=== PATIENT | male | born 1955 | race African-American/Black ===

== ENCOUNTER 2019-10-17 08:36 | Outpatient (CLI) | payer MEDICARE ==
--- NOTE | 2019-10-17 09:33 | CT ---
CT OF THE CHEST WITH CONTRAST: HISTORY: Abnormal chest x-ray with right lung mass. TECHNIQUE: Multiple contiguous axial images were obtained in a CT of the chest with contrast. Sagittal and salena nal reformats were performed. FINDINGS: There is a calcified granuloma in the right lung base. There is a well-circumscribed tubular area of low-density and without significant enhancement in the right mid lung field. This measures approxim ately 3.1 x 4.0 x 1.7 cm in size and has a mean Hounsfield unit value of 26. Emphysematous changes a re seen in the lungs, right greater than left. The heart is upper limits of normal in size. Calcifications are seen in the coronary arteries and ao rta. No hilar or mediastinal lymphadenopathy are seen. Degenerative changes are seen in the spine. The visualized subdiaphragmatic structures are unremarka ble. The chest wall soft tissues are unremarkable. IMPRESSION: There is a tubular-shaped mass in the right chest. This could represent sequelae from prior infectio n. A followup CT in 3 months is recommended to ensure stability. Alternatively, a PET CT could be p erformed to evaluate for hypermetabolic activity. POS: EAA
[2019-10-17] MEDS ORDERED: Iopamidol 370 76% 100 ML VIAL ONE (10:41)
== END 2019-10-17 08:37 | disposition home or self-care (01) ==
LOC: BICCT 08:36
PROVIDERS: ATTEND Family Medicine
DX: R91.8 Other nonspecific abnormal finding of lung field (principal)
CPT/HCPCS: 71260; 82565; Q9967